=== PATIENT | male | born 1955 | race Two or more races ===

== ENCOUNTER 2020-07-07 02:14 | Inpatient (IN) | payer MEDICARE, OTHER ==
[~2020-07-07] VITALS: Ht 182.9 cm; Wt 117.0 kg
--- NOTE | 2020-07-07 02:40 | NUR ---
CALLED LAB FOR COVID SWAB
--- NOTE | 2020-07-07 02:52 | NUR ---
PROVIDED MOVE PACKET TO ADMITTING. WAITING FOR INSURANCE CALL BACK.
[2020-07-07 03:06] LABS: BASOPHILS # (AUTO) 0.1 /CMM (0.0-0.2); BASOPHILS % (AUTO) 1.3 % (0.0-2.0); EOSINOPHILS % (AUTO) 0.5 % (0.0-6.0); HEMATOCRIT 33 % (39-51); HEMOGLOBIN 10.3 g/dL (13.5-17.5); LYMPHOCYTES # (AUTO) 1.1 /CMM (0.8-4.8); LYMPHOCYTES % (AUTO) 9.5 % (20.0-44.0); MEAN CORPUSCULAR HGB CONC 31 g/dl (31.0-36.0); MEAN CORPUSCULAR VOLUME 92 fL (80-96); MONOCYTES # (AUTO) 0.7 /CMM (0.1-1.30); NEUTROPHILS # (AUTO) 9.8 /CMM (1.8-8.9); NEUTROPHILS % (AUTO) 82.7 % (43.0-81.0); PLATELET COUNT (AUTO) 78 /CMM (150-450); RED BLOOD CELL COUNT(AUTO) 3.59 MIL/uL (4.5-6.0); WHITE BLOOD COUNT (AUTO) 11.9 K/uL (4.3-11.0)
--- NOTE | 2020-07-07 03:17 | NUR ---
brought to ct
[2020-07-07 03:18] LABS: CALCIUM, SERUM 8.1 mg/dL (8.5-10.1); CARBON DIOXIDE 17 mmol/L (21-32); CHLORIDE 94 mmol/L (98-107); CREATININE 1.9 mg/dL (0.6-1.3); GLUCOSE 101 mg/dL (74-106); POTASSIUM 5.7 mmol/L (3.5-5.1); SODIUM SERUM 123 mmol/L (136-145); UREA NITROGEN, BLOOD 34 mg/dL (7-18)
[2020-07-07 03:19] LABS: SERUM AMMONIA 19 umol/L (11-32)
[2020-07-07 03:23] LABS: ALANINE AMINOTRANSFERASE 39 U/L (12-78); ALBUMIN 2.1 g/dL (3.4-5.0); ALKALINE PHOSPHATASE 244 U/L (46-116); ASPARTATE AMINOTRANSFERASE 37 U/L (15-37); BILIRUBIN,DIRECT 0.7 mg/dL (0.0-0.2); BILIRUBIN,TOTAL 1.5 mg/dL (0.2-1.0); LIPASE 153 U/L (73-393); TOTAL PROTEIN, SERUM 6.1 g/dL (6.4-8.2)
--- NOTE | 2020-07-07 03:31 | NUR ---
PATIENT RETURNED FROM CT
[2020-07-07 03:50] LABS: LYMPHOCYTES % (MANUAL) 6 % (16-48); MONOCYTES % (MANUAL) 8 % (0-11.0); NEUTROPHILS % (MANUAL) 86 (42-76)
[2020-07-07] MEDS ORDERED: ONDANSETRON HCL/PF 4 MG/2 ML VIAL IV ONE (04:00)
[2020-07-07] MEDS ORDERED: MORPHINE SULFATE INJ 2 MG/ML DISP.SYRIN IV ONE (04:00)
[2020-07-07] MEDS ORDERED: MORPHINE SULFATE INJ 4 MG/ML DISP.SYRIN ONE (04:10)
[2020-07-07] MEDS ORDERED: ONDANSETRON HCL/PF 4 MG/2 ML VIAL ONE (04:10)
[2020-07-07] MEDS ORDERED: ASPIRIN 325 MG TABLET ONE (04:11)
--- NOTE | 2020-07-07 04:12 | NUR ---
SPOKE TO KENDAL WILLS CALL BACK NUMBER [phone], WILL FAX UPDATED CLINICALS.
[2020-07-07] MEDS ORDERED: IV NS 0.9% 1,000 ML BAG IV ONE (04:30)
[2020-07-07] MEDS ORDERED: ASPIRIN 325 MG TABLET PO ONE (04:30)
--- NOTE | 2020-07-07 04:35 | NUR ---
DR. GARCIA CALLED [facility] FOR PENDING CXR AND CT ABD. WILL BE READ NEXT
--- NOTE | 2020-07-07 05:13 | NUR ---
VERBAL AUTH TO ADMIT PER KENDAL WILLS, ADMITTING AWARE
--- NOTE | 2020-07-07 05:14 | NUR ---
CALLED [facility] FOR PANEL ADMISSION, DR. EHSAN MALLORY.
--- NOTE | 2020-07-07 05:19 | NUR ---
CALLED [facility] FOR TELE BED
--- NOTE | 2020-07-07 05:33 | NUR ---
MANJULAID SWABBED, SENT TO LAB.
--- NOTE | 2020-07-07 05:34 | NUR ---
DR. MOSER SPEAKING TO DR. GARCIA REGARDING PLAN OF CARE.
--- NOTE | 2020-07-07 05:48 | NUR ---
REPORT GIVEN TO PAULA JACOBS FOR JESSICA.
--- NOTE | 2020-07-07 06:00 | NUR ---
PT TRANSFERRED PER ACLS PROTOCOL TO 204 VIA [facility]
--- NOTE | 2020-07-07 06:00 | NUR ---
TELE/RN ADMITTING NOTES: REPORT GIVEN BY Magdiel OLIVERA RN FROM ER. PT ARRIVED TO THE UNIT AT 0600 VIA GURNEY UNDER ACLS PROTOCOL, VIA GURNEY. PT IS IN STABLE CONDITION, A/OX3-4. SYRIAC SPEAKING. ABLE TO UNDERSTAND MINIMAL TAJIK. NO SOB NOTED. ON ROOM AIR. BREATHING EVEN AND UNLABORED. NO C/O PAIN AT THIS TIME. ON TELE MONITORING WITH READING OF ST 104 AT THIS TIME. PT ABDOMEN IS DISTENDED AND TENDER. PT ABLE TO AMBULATE WITH STEADY GATE. EDEMA PRESENT WITH PITTING +2. SKIN ASSESSED AND PEELING PRESENT AND REDNESS PRESENT ON THE SACRUM. PHOTO TAKEN AND DOCUMENTED. WOUND CONSULT ORDERED. ORIENTED TO STAFF AND UNIT. VSS. BELONGINGS LIST CHECKED BY SUPA WILLS, AND SIGNED. PT. STATES HE DOES NOT WANT BLOOD PRODUCTS BECAUSE HE IS CATHOLIC. HE WANTS TO BE FULL CODE. STILL AWAITING FOR ORDERS FROM DR. MOSER. SAFETY MEASURES IMPLEMENTED. BED IN LOW, LOCKED POSITION, SR UP X2. WILL CONTINUE TO MONITOR ACCORDINGLY AND ENDORSE TO DAY SHIFT FOR JESSICA.
--- NOTE | 2020-07-07 06:02 | NUR ---
TELE/RN NOTES: LAB CALLED FOR CRITICAL VALUE LACTIC ACID: 2.3. LIFE SKILLS EDUCATOR SOLIDDEYSI, O. DR. MOSER CALLED AND INFORMED. STATES HE WILL PUT IN THE ORDERS HIMSELF. WILL CONTINUE TO MONITOR FOR NOW.
--- NOTE | 2020-07-07 06:02 | NUR ---
TELE/RN NOTES: LAB CALLED FOR CRITICAL VALUE LACTIC ACID: 2.3. DR. MOSER CALLED AND INFORMED. STATES HE WILL PUT IN THE ORDERS HIMSELF. WILL CONTINUE TO MONITOR FOR NOW.
--- NOTE | 2020-07-07 06:05 | NUR ---
PATIENT TAKEN UP TO ASSIGNED ROOM FOR JESSICA.
--- NOTE | 2020-07-07 06:30 | NUR ---
TELE/RN NOTES: ER NURSE STATES THAT PATIENT STATED "HE DID NOT GET PARACENTESIS. HOWEVER, UPON TALKING TO THE PATIENT, HE DID GET A PARACENTESIS 3X IN VALLEY PRES WITH AN OUTPUT OF 3L, 4L, AND 4L. ENDORSED TO DAY SHIFT. ".
--- NOTE | 2020-07-07 06:31 | NUR ---
TELE/RN NOTES: PT. STATES HE WAS IN [facility] FROM TO Jun.
--- NOTE | 2020-07-07 06:40 | NUR ---
TELE/RN NOTES: DR. MOSER PUT IN MISC. ORDER TO INPUT PT'S HOME MEDS. PER PT, HE DOES NOT KNOW THE MEDICATIONS HE IS TAKING. HE WAS DC'D FROM [facility] AND HIS DOCTOR TOLD HIM "TO SEE HIS PRIMARY DOCTOR FOR UPDATED PRESCRIPTION OF MEDS". UPON TALKING MORE TO THE PATIENT, HE SAYS HIS PHARMACY IS [facility] @ [place]. PT. ALSO STATES THAT HE HAS AN APPOINTMENT ABOUT HIS LIVER WITH A SPECIALIST (DR. RUSSELL) IN [place] THIS THURSDAY. PHONE NUMBER IS [phone]. WILL F/U AND ENDORSE TO DAY SHIFT.
[2020-07-07 07:55] LABS: APPEARANCE,URINE CLEAR (CLEAR); BILIRUBIN,URINE NEGATIVE (NEGATIVE); BLOOD, URINE NEGATIVE Ery/uL (NEGATIVE); COLOR,URINE YELLOW (YELLOW); KETONES,URINE NEGATIVE (NEGATIVE); LEUKOCYTE ESTERASE ,URINE NEGATIVE (NEGATIVE); NITRITE, URINE NEGATIVE (NEGATIVE); PH,URINE 6.5 (5.0-8.0); PROTEIN,URINE NEGATIVE (NEGATIVE); UGLUCOSE NEGATIVE (NEGATIVE); UROBILINOGEN,URINE 0.2 EU/dL (0.2)
[2020-07-07 08:00] VITALS: BP 137/75
[2020-07-07] MEDS ORDERED: ACETAMINOPHEN 325 MG TABLET PO PRN ×2 (09:00→11:00)
[2020-07-07] MEDS ORDERED: ONDANSETRON HCL/PF 4 MG/2 ML VIAL IVP PRN (09:00)
[2020-07-07] MEDS ORDERED: ZOLPIDEM TARTRATE 5 MG TABLET PO PRN (09:00)
[2020-07-07] MEDS ORDERED: HYDROCODONE/APAP 5/325MG TABLET PO PRN (09:00)
[2020-07-07 09:15] LABS: BASOPHILS % (AUTO) 0.2 % (0.0-2.0); EOSINOPHILS % (AUTO) 0.7 % (0.0-6.0); HEMATOCRIT 30 % (39-51); HEMOGLOBIN 9.8 g/dL (13.5-17.5); LYMPHOCYTES # (AUTO) 0.5 /CMM (0.8-4.8); LYMPHOCYTES % (AUTO) 5.2 % (20.0-44.0); MEAN CORPUSCULAR HGB CONC 33 g/dl (31.0-36.0); MEAN CORPUSCULAR VOLUME 87 fL (80-96); MONOCYTES # (AUTO) 1.2 /CMM (0.1-1.30); MONOCYTES % (AUTO) 11.6 % (2.0-12.0); NEUTROPHILS # (AUTO) 8.3 /CMM (1.8-8.9); NEUTROPHILS % (AUTO) 82.3 % (43.0-81.0); PLATELET COUNT (AUTO) 78 /CMM (150-450); RED BLOOD CELL COUNT(AUTO) 3.43 MIL/uL (4.5-6.0); WHITE BLOOD COUNT (AUTO) 10.1 K/uL (4.3-11.0)
[2020-07-07 09:24] LABS: CREATININE 1.7 mg/dL (0.6-1.3); POTASSIUM 5.7 mmol/L (3.5-5.1)
[2020-07-07 09:34] LABS: BILIRUBIN,TOTAL 1.3 mg/dL (0.2-1.0); MAGNESIUM 2.2 mg/dL (1.8-2.4); PHOSPHORUS 3.9 mg/dL (2.5-4.9); TOTAL PROTEIN, SERUM 5.6 g/dL (6.4-8.2)
[2020-07-07] MEDS ORDERED: PROP10TA68 PO (09:37)
[2020-07-07] MEDS ORDERED: FURO40TA5 PO (09:37)
[2020-07-07] MEDS ORDERED: SPIR50TA5 PO (09:37)
[2020-07-07] MEDS ORDERED: PANT40TA49 PO (09:37)
[2020-07-07] MEDS ORDERED: SODI1TAB66 PO (09:37)
[2020-07-07] MEDS ORDERED: APIX5TAB PO (09:37)
[2020-07-07 09:38] LABS: THYROID STIMULATING HORMONE 15.001 uIU/mL (0.358-3.74)
[2020-07-07] MEDS ORDERED: SODIUM POLYSTYRENE SULFONATE 15 G/60 ML BOTTLE PO ONE (10:00)
[2020-07-07] MEDS: DOCUSATE SODIUM 100 MG CAPSULE PO SCH ×2 (10:27→17:00)
[2020-07-07] MEDS: IV NS 0.9% 1,000 ML IV PRN ×2 (10:37→20:51)
[2020-07-07] MEDS ORDERED: METOPROLOL TARTRATE 50 MG TABLET PO SCH (12:00)
[2020-07-07] MEDS: METOPROLOL TARTRATE 25 MG TABLET PO SCH ×2 (12:47→18:45)
--- NOTE | 2020-07-07 15:20 | NUR ---
Bedside paracentesis done with output 3400 ml. Patient in stable condition. Dressing applied to prevent leaking.
--- NOTE | 2020-07-07 17:00 | NUR ---
Body fluid sent to lab
[2020-07-07] MEDS: ALBUMIN 25% 25 GM in PREMIX 1 EA IV SCH (17:47)
--- NOTE | 2020-07-07 18:00 | NUR ---
Albumin administrated
--- NOTE | 2020-07-07 19:40 | NUR ---
Patient awake alert and oriented x4 , resting in bed . Patient complains of pain abd 4/10 and stats it is tolerable at tis time. IV line patent and intact, IV fluids running as ordered.All needs attended , patient kept comfortable. Patient reported poor appetite. Patient on fluid restrictions 800ml per day. Safety precautions in place, call light within reach . Will endorse to next shift for JESSICA
[2020-07-07 20:00] VITALS: BP 133/72
--- NOTE | 2020-07-07 20:15 | NUR ---
RN NOTES: S/P PARACENTESIS, NOTED DRESSING ON RLQ, PER REPORT NOTED SOME LEAKING FLUID ON AREA. ABDOMEN SOFT TO TOUCH WITH ACTIVE BOWEL SOUND HEARD UPON AUSCULTATION, PT C/O 8/10 ABDOMINAL PAIN MID EPIGASTRIC AREA. PT CLAIMED HE HAD 3X BM, PT ON KAYEXALATE DUE TO HIGH LEVEL POTASSIUM.
--- NOTE | 2020-07-07 20:29 | NUR ---
rn notes/epic page: paged epic hospitalist home health occupational therapist regarding pt's c/o 05/24 abdominal pain, only has prn tylenol. pt claimed its not effective. awaiting call back from .
--- NOTE | 2020-07-07 20:38 | NUR ---
RN NOTES/EPIC CALL BACK: RECEIVED TELEPHONE ORDER FROM , "STAT KUB TO EVALUATE ABDOMINAL PAIN, MORPHINE 2MG IVP Q4HRS PRN FOR PAIN 8-10. ORDER READ BACK VERIFIED AND CARRIED OUT.
--- NOTE | 2020-07-07 20:42 | NUR ---
RN NOTES: CALLED RADIOLOGY FOR STAT KUB.
--- NOTE | 2020-07-07 20:55 | NUR ---
rn notes: kub completed.
[2020-07-07] MEDS: MORPHINE SULFATE INJ 2 MG/ML DISP.SYRIN IV PRN (21:05)
--- NOTE | 2020-07-07 21:05 | NUR ---
prn morphine: pt c/o mid epigastric abdominal pain 810 prn morphine 2mg ivp administered at this time. will continue to monitor and reassess.
[2020-07-07 22:18] VITALS: BP 133/72
[2020-07-07 22:23] LABS: CHLORIDE,URINE RANDOM 25 mmol/L (55-125); POTASSIUM RNDM,URINE 60 mmol/L (25-125)
[2020-07-07 22:32] LABS: CREATININE, URINE 206.2 MG/DL (30.0-125.0); URINE SODIUM, RANDOM < 5 mmol/l (40-220); URINE TOTAL PROTEIN 19.5 mg/dL (0-11.9)
[2020-07-07 22:33] LABS: APPEARANCE,URINE CLEAR (CLEAR); BILIRUBIN,URINE NEGATIVE (NEGATIVE); BLOOD, URINE NEGATIVE Ery/uL (NEGATIVE); COLOR,URINE YELLOW (YELLOW); KETONES,URINE NEGATIVE (NEGATIVE); LEUKOCYTE ESTERASE ,URINE NEGATIVE (NEGATIVE); NITRITE, URINE NEGATIVE (NEGATIVE); PROTEIN,URINE NEGATIVE (NEGATIVE); UGLUCOSE NEGATIVE (NEGATIVE); UROBILINOGEN,URINE 0.2 EU/dL (0.2)
--- NOTE | 2020-07-07 22:54 | NUR ---
rn notes/kub result: relayed to md regarding result of kub, and also notified about result of ct abdomen from yesterday, informed pt on colace bid and received kayexalate today with noted 3bm, per md no new orders.
[2020-07-07 22:55] LABS: OSMOLALITY,URINE 566 mOS/kg (340-1090)
[2020-07-07 23:04] LABS: EOSINOPHIL,URINE None Seen
[2020-07-08] VITALS (9 sets, daily range): BP systolic 109–166; BP diastolic 54–74
--- NOTE | 2020-07-08 00:15 | NUR ---
COVID RESULT: RECEIVED CALL FROM LAB, TORSTEN PAUL, COVID PCR RESULT IS POSITIVE. NOTIFIED EPIC MD GIFT PACKER, PT ON COVID ISOLATION PRECAUTION, N95 MASK AND FACE SHIELD USED.
[2020-07-08] MEDS: ALBUMIN 25% 25 GM in PREMIX 1 EA IV SCH ×2 (00:46→08:58)
[2020-07-08] MEDS: METOPROLOL TARTRATE 25 MG TABLET PO SCH ×4 (00:46→17:07)
[2020-07-08] MEDS: MORPHINE SULFATE INJ 2 MG/ML DISP.SYRIN IV PRN ×2 (05:13→20:17)
--- NOTE | 2020-07-08 05:13 | NUR ---
prn morphine: pt c/o 04/23 left and right lower quadrant abdl pain requeting for morphine, prn morphine 2mg ivp administered to pt at this time.
[2020-07-08 06:25] LABS: BASOPHILS % (AUTO) 0.5 % (0.0-2.0); EOSINOPHILS % (AUTO) 1.5 % (0.0-6.0); HEMATOCRIT 28 % (39-51); HEMOGLOBIN 9.1 g/dL (13.5-17.5); LYMPHOCYTES # (AUTO) 0.5 /CMM (0.8-4.8); LYMPHOCYTES % (AUTO) 7.6 % (20.0-44.0); MEAN CORPUSCULAR HGB CONC 33 g/dl (31.0-36.0); MEAN CORPUSCULAR VOLUME 88 fL (80-96); MONOCYTES # (AUTO) 0.7 /CMM (0.1-1.30); MONOCYTES % (AUTO) 10.8 % (2.0-12.0); NEUTROPHILS # (AUTO) 4.9 /CMM (1.8-8.9); NEUTROPHILS % (AUTO) 79.6 % (43.0-81.0); PLATELET COUNT (AUTO) 77 /CMM (150-450); RED BLOOD CELL COUNT(AUTO) 3.17 MIL/uL (4.5-6.0); WHITE BLOOD COUNT (AUTO) 6.2 K/uL (4.3-11.0)
--- NOTE | 2020-07-08 07:08 | NUR ---
end of shift report: pt covid19 positive. ppe utilized with face sheild and n95. pt remains on ra, respirations even and unlabored. remains with distended abdomen, soft to touch, pt claimed he's been passing gas frequently. iv access patent and flushing well, infusing with ns at 100ml/hr. no s/s of iv infiltration noted. tele monitoring sinus rhythm hr 88. prn morphine administered for c/o abdominal pain. safety precautions for fall initiated, call light in reach, will endorse to day rn for jessica.
[2020-07-08 07:09] LABS: ALBUMIN 2.3 g/dL (3.4-5.0); BILIRUBIN,TOTAL 1.4 mg/dL (0.2-1.0); CALCIUM, SERUM 7.9 mg/dL (8.5-10.1); CREATININE 1.6 mg/dL (0.6-1.3); MAGNESIUM 2.1 mg/dL (1.8-2.4); PHOSPHORUS 3.8 mg/dL (2.5-4.9); POTASSIUM 5.3 mmol/L (3.5-5.1); TOTAL PROTEIN, SERUM 5.2 g/dL (6.4-8.2)
--- NOTE | 2020-07-08 07:30 | NUR ---
RN Opening note Received patient in bed resting AO x 3, able to resods all stimuli. Patient positive covid, no fever or cough observed at this time, skin is warm to touch, keep clean/dry intact IV site on left wrist 22g. Respiratory even and unlabored on room air. Kept locked bed with lowest position and elevated HOB for ensure airway. Call light within reach, will continue to monitor.
[2020-07-08 07:32] LABS: THYROID STIMULATING HORMONE 14.431 uIU/mL (0.358-3.74); URIC ACID 7.8 mg/dL (2.6-7.2)
--- NOTE | 2020-07-08 08:05 | NUR ---
Patient seen by Dr. Ovalle, received order social service consult for housing, placement. Noted and carry out.
[2020-07-08] MEDS: DOCUSATE SODIUM 100 MG CAPSULE PO SCH ×2 (08:23→17:05)
[2020-07-08] MEDS: PANTOPRAZOLE 40 MG TABLET.DR PO SCH (08:23)
[2020-07-08] MEDS ORDERED: SODIUM POLYSTYRENE SULFONATE 15 G/60 ML BOTTLE PO ONE (09:00)
--- NOTE | 2020-07-08 09:30 | NUR ---
Patient transferred from room 204 to 206-2, warehouse clerk/Stephanie aware.
[2020-07-08 09:53] LABS: C-REACTIVE PROTEIN 6.7 mg/dL (0.0-0.9)
--- NOTE | 2020-07-08 12:40 | NUR ---
HR 57, will hold Metoprolol.
[2020-07-08] MEDS: IV NS 0.9% 1,000 ML IV PRN (15:12)
--- NOTE | 2020-07-08 15:54 | NUR ---
Notified Dr. Ovalle regarding finish MedRecon.
[2020-07-08] MEDS ORDERED: ALBUMIN 25% 25 GM in PREMIX 1 EA IV SCH (17:00)
--- NOTE | 2020-07-08 18:02 | NUR ---
RN Closing note Patient in bed resting, skin is warm to touch, keep clean/dry, intact IV site, running NS at 751ml/hr. Respiratory even and unlabored on room air and O2sat 97%, no respiratory distress observed. Kept locked bed with lowest position and elevated HOB for ensure airway and aspiration precaution. Call light within reach, all needs met, will endorse night clerk auditor.
--- NOTE | 2020-07-08 19:55 | NUR ---
GARBAGE WORKER NOTES RECEIVED PATIENT AWAKE ALERT ORIENTEDX4.BREATHING EVEN AND UNLABORED. ON ROOM AIR. SAFETY MEASURES IN PLACE, ASPIRATION PRECAUTION EMPHASIZED. BED IN LOW LOCKED POSITION. IV ACCESS INTACT AND PATENT ON HIS LEFT FA G#18 INFUSING WELL. TELE MONITOR READS SINUS RHYTHM. ALL NEEDS ANTICIPATED, CALL LIGHT WITHIN EASY REACH. WILL CONTINUE TO MONITOR ACCORDINGLY.
[2020-07-09] VITALS: BP 137/79
[2020-07-09] MEDS: METOPROLOL TARTRATE 25 MG TABLET PO SCH ×4 (00:38→18:19)
[2020-07-09 04:00] VITALS: BP 120/71
--- NOTE | 2020-07-09 06:37 | NUR ---
ORTHODONTIST NOTES ALL NEEDS ATTENDED AND MET. ABLE TO REST AND SLEPT AT INTERVALS. PATIENT AWAKE ALERT ORIENTEDX4.BREATHING EVEN AND UNLABORED. ON ROOM AIR. SAFETY MEASURES IN PLACE, ASPIRATION PRECAUTION EMPHASIZED. BED IN LOW LOCKED POSITION. IV ACCESS INTACT AND PATENT ON HIS LEFT FA G#18 INFUSING WELL. TELE MONITOR READS SINUS RHYTHM 82 WITH BBB. ALL NEEDS ANTICIPATED, CALL LIGHT WITHIN EASY REACH. WILL ENDORSE TO AM NURSE FOR CONTINUITY OF CARE.
[2020-07-09 06:42] LABS: BASOPHILS % (AUTO) 0.4 % (0.0-2.0); EOSINOPHILS % (AUTO) 1.7 % (0.0-6.0); HEMATOCRIT 28 % (39-51); HEMOGLOBIN 9.2 g/dL (13.5-17.5); LYMPHOCYTES # (AUTO) 0.4 /CMM (0.8-4.8); LYMPHOCYTES % (AUTO) 7.5 % (20.0-44.0); MEAN CORPUSCULAR HGB CONC 33 g/dl (31.0-36.0); MEAN CORPUSCULAR VOLUME 89 fL (80-96); MONOCYTES # (AUTO) 0.7 /CMM (0.1-1.30); MONOCYTES % (AUTO) 12.2 % (2.0-12.0); NEUTROPHILS # (AUTO) 4.7 /CMM (1.8-8.9); NEUTROPHILS % (AUTO) 78.2 % (43.0-81.0); PLATELET COUNT (AUTO) 83 /CMM (150-450); RED BLOOD CELL COUNT(AUTO) 3.18 MIL/uL (4.5-6.0)
[2020-07-09] MEDS: PANTOPRAZOLE 40 MG TABLET.DR PO SCH (07:06)
[2020-07-09 07:14] LABS: CALCIUM, SERUM 7.8 mg/dL (8.5-10.1); CREATININE 1.3 mg/dL (0.6-1.3)
[2020-07-09 08:00] VITALS: BP 106/65
--- NOTE | 2020-07-09 08:00 | NUR ---
AUTOMOTIVE CENTER MANAGER OPENING NOTES Received Patient resting in bed. A/O x 3. VS stable with no acute distress. Breathing even and unlabored on room air with no respiratory distress. Patient stated abdominal pain. Will intervene as ordered. Telemonitor in place and patent reading SR with HR-80. 18g PIV on LFA intact, patent and flushing well with NS infusing at 100ml/hr. Safety precautions in place. Bed locked and set to lowest position with side rails x 2 up. All needs rendered at this time. Call light within reach. Will continue to monitor.
[2020-07-09] MEDS: DOCUSATE SODIUM 100 MG CAPSULE PO SCH ×2 (09:14→18:17)
--- NOTE | 2020-07-09 09:39 | NUR ---
WOUND CARE CONSULT: REVIEWED CHART, NURSING DOCUMENTATION AND PHOTOS WHICH INDICATE SCARRING TO SACRAL AREA WITH UNEVEN SKIN PIGMENTATION, PRESENT ON ADMISSION. RECOMMENDATIONS MADE FOR SKIN PROTECTION. DISCUSSED WITH NURSING STAFF. CURRENT EVELIN SCORE IS 19.
[2020-07-09] MEDS: MORPHINE SULFATE INJ 2 MG/ML DISP.SYRIN IV PRN (10:10)
[2020-07-09 12:00] VITALS: BP 111/64
[2020-07-09] MEDS ORDERED: SODIUM CHLORIDE 1000 MG TABLET PO SCH (17:00)
[2020-07-09] MEDS ORDERED: PROPRANOLOL HCL 10 MG TABLET PO SCH (17:00)
[2020-07-09] MEDS ORDERED: PANTOPRAZOLE 40 MG TABLET.DR PO SCH (18:00)
[2020-07-09 18:19] VITALS: BP 113/68
--- NOTE | 2020-07-09 19:30 | NUR ---
STUDENT TRUCK DRIVER CLOSING NOTES Patient resting in bed. A/O x 3. VS stable with no acute distress. Breathing even and unlabored on room air with no respiratory distress. Denies pain. No signs and symptoms of pain. Patient prepared for discharge, removed telemonitor. Removed 18g PIV on LFA intact. Medication reconciliation and discharge orders reviewed and explained to Patient. Patient verbalized understanding. All belongings with Patient. Patient will follow up with PCP/Pathologist in 1-2 weeks. Safety precautions in place. Bed locked and set to lowest position with side rails x 2 up. All needs rendered at this time. Call light within reach. Report given to Kaur GREER. Will endorse discharge plan to oncoming shift.
--- NOTE | 2020-07-09 20:00 | NUR ---
LAP CUTTER TRUER OPERATOR NOTES RECEIVED REPORT FROM ARLENE MITCHELL; PER AM SHIFT, PATIENT AWAITING D/C REGRADER; AMBULANCE PICKED PATIENT UP APPROX 1999, ACCOMPANIED BY 2 EMT STAFF MEMBERS; TELE MONITOR REMOVED; IV ACCESS REMOVED; IV TIP INTACT; NO S/S OF REDNESS OR BLEEDING NOTED; PATIENT LEFT UNIT WITH ALL BELONGINGS; NURSING BLOW UP OPERATOR AWARE; PATIENT D/C TO [facility]
[2020-07-10] MEDS ORDERED: SPIRONOLACTONE 25 MG TABLET PO SCH (09:00)
[2020-07-10] MEDS ORDERED: FUROSEMIDE 40 MG TABLET PO SCH (09:00)
== END 2020-07-09 20:00 | DRG 432 ==
LOC: ER 02:19 → TELE2 05:36
PROVIDERS: ADMIT Internal Medicine; ATTEND Internal Medicine
PROC: 0W9G3ZZ Drainage of Peritoneal Cavity, Percutaneous Approach (ICD-10-PCS; principal; 2020-07-07)
DX: K74.60 Unspecified cirrhosis of liver (principal); N17.0 Acute kidney failure with tubular necrosis; U07.1 COVID-19; I21.4 Non-ST elevation (NSTEMI) myocardial infarction; E87.1 Hypo-osmolality and hyponatremia; E87.2 Acidosis; J90 Pleural effusion, not elsewhere classified; R18.8 Other ascites; D69.59 Other secondary thrombocytopenia; I11.0 Hypertensive heart disease with heart failure; E87.5 Hyperkalemia; I50.9 Heart failure, unspecified; K21.9 Gastro-esophageal reflux disease without esophagitis; D69.6 Thrombocytopenia, unspecified; R74.01 Elevation of levels of liver transaminase levels; I70.0 Atherosclerosis of aorta
CPT/HCPCS: 36415; 71045-TC; 74018; 76942-TC; 80048-TC; 80053-TC; 80061-TC; 80076-TC; 81000-TC; 82140-TC; 82436-TC; 82570-TC; 82728-TC; 83605-TC; 83615-TC; 83690-TC; 83735-TC; 83880; 83935-TC; 84100-TC; 84133-TC; 84155-TC; 84300-TC; 84439-TC; 84443-TC; 84484-TC; 84550-TC; 85025-TC; 85378-TC; 85730-TC; 86140-TC; 87040-TC; 87070-TC; 87081-TC; 93307-TC; A4216; C9803; G0378; J2270; J2405; J7030; P9047; U0003

== ENCOUNTER 2020-07-19 11:04 | Emergency (ER) | payer MEDICARE, OTHER ==
[~2020-07-19] VITALS: Ht 170.2 cm; Wt 119.3 kg
[~2020-07-19 11:04] MED LIST: APIX5TAB PO; FURO40TA5 PO; PANT40TA49 PO; PROP10TA68 PO; SODI1TAB66 PO; SPIR50TA5 PO
--- NOTE | 2020-07-19 11:16 | NUR ---
[facility] from [facility] "sent here for abdominal distention/needs paracentesis. Last drain was 1wk ago. Covid + 07/07. Patient placed in ER bed 6. No distress noted. Needs attended.
[2020-07-19 11:45] LABS: BASOPHILS # (AUTO) 0.1 /CMM (0.0-0.2); BASOPHILS % (AUTO) 0.5 % (0.0-2.0); EOSINOPHILS % (AUTO) 0.2 % (0.0-6.0); HEMATOCRIT 33 % (39-51); HEMOGLOBIN 10.5 g/dL (13.5-17.5); LYMPHOCYTES # (AUTO) 1.2 /CMM (0.8-4.8); LYMPHOCYTES % (AUTO) 7.3 % (20.0-44.0); MEAN CORPUSCULAR HGB CONC 32 g/dl (31.0-36.0); MEAN CORPUSCULAR VOLUME 88 fL (80-96); MONOCYTES # (AUTO) 1.3 /CMM (0.1-1.30); MONOCYTES % (AUTO) 7.8 % (2.0-12.0); NEUTROPHILS # (AUTO) 13.7 /CMM (1.8-8.9); NEUTROPHILS % (AUTO) 84.2 % (43.0-81.0); PLATELET COUNT (AUTO) 128 /CMM (150-450); RED BLOOD CELL COUNT(AUTO) 3.79 MIL/uL (4.5-6.0); WHITE BLOOD COUNT (AUTO) 16.3 K/uL (4.3-11.0)
--- NOTE | 2020-07-19 12:00 | NUR ---
PT SIGNED CONSENT FORM FOR PARACENTESIS.
--- NOTE | 2020-07-19 12:49 | NUR ---
COVID RESULT: NEGATIVE
--- NOTE | 2020-07-19 13:10 | NUR ---
SUPERVISOR RUBBER COVERING @ BS FOR EVAL.
--- NOTE | 2020-07-19 13:35 | NUR ---
RADIOLOGIST @ BS FOR PARACENTISIS.
--- NOTE | 2020-07-19 14:43 | NUR ---
PT STABLE, RR EVEN & UNALBORED. DENIES CP, SOB, DIZZINESS, N/V AT THIS TIME. AWAITING [facility] FOR TRANSFER TO SNF. WILL CONT TO MONITOR.
--- NOTE | 2020-07-19 14:46 | NUR ---
CALLED [facility]. ERA 30-45 MINUTES.
--- NOTE | 2020-07-19 15:57 | NUR ---
[facility]. Patient discharged to SNF in stable condition. Written and verbal after care instructions given. Patient verbalizes understanding of instruction.
[2020-07-19 15:58] VITALS: BP 120/82
== END 2020-07-19 15:58 ==
LOC: ER 11:12
DX: K72.90 Hepatic failure, unspecified without coma (principal); R18.8 Other ascites; K74.60 Unspecified cirrhosis of liver; I13.0 Hypertensive heart and chronic kidney disease with heart failure and stage 1 through stage 4 chronic kidney disease, or unspecified chronic kidney disease; N18.9 Chronic kidney disease, unspecified; I50.9 Heart failure, unspecified; Z79.899 Other long term (current) drug therapy; I25.2 Old myocardial infarction; M62.81 Muscle weakness (generalized); M47.9 Spondylosis, unspecified; Z20.828 Contact with and (suspected) exposure to other viral communicable diseases
CPT/HCPCS: 36415; 76942-TC; 85025-TC; 85730-TC; C9803